=== PATIENT | female | born 1940 | race Caucasian/White ===

== ENCOUNTER 2019-10-20 17:30 | Emergency (ER) | payer MEDICARE, OTHER ==
[2019-10-20 17:46] LABS: INTERNATIONAL RATION (INR) 0.93; PARTIAL THROMBOPLASTIN TIME 25.3 SEC (23.5-35.8); PROTHROMBIN TIME 12.5 SEC (11.4-15.4)
[2019-10-20 17:53] LABS: ABSOLUTE BASOPHILS # (AUTO) 0.1 10^3/uL (0.0-0.2); ABSOLUTE EOSINOPHILS # (AUTO) 0.3 10^3/uL (0.0-0.6); ABSOLUTE LYMPHOCYTES (AUTO) 3.1 10^3/uL (0.5-4.7); ABSOLUTE MONOCYTES (AUTO) 0.6 10^3/uL (0.1-1.4); ABSOLUTE NEUT (AUTO) 4.2 10^3/uL (1.7-8.2); EOSINOPHILS % (AUTO) 3.3 % (0-6); HEMATOCRIT 33.9 % (36.0-47.0); HEMOGLOBIN 11.6 g/dL (12.0-15.5); LYMPHOCYTES % (AUTO) 37.7 % (13-45); MEAN CORPUSCULAR HEMOGLOBIN 31.4 pg (27.0-33.4); MEAN CORPUSCULAR HGB CONC 34.2 g/dL (32.0-36.0); MEAN CORPUSCULAR VOLUME 92 fl (80-97); MONOCYTES % (AUTO) 7.5 % (3-13); PLATELET COUNT 184 10^3/uL (150-450); RED BLOOD COUNT 3.69 10^6/uL (3.72-5.28); RED CELL DISTRIBUTION WIDTH 14.5 % (11.5-14.0); SEGMENTED NEUTROPHILS % (AUTO) 50.5 % (42-78); TOTAL CELLS COUNTED % (AUTO) 100 %; WHITE BLOOD COUNT 8.3 10^3/uL (4.0-10.5)
--- NOTE | 2019-10-20 17:57 | RADIOLOGY REPORT (SQ) ---
EXAM DESCRIPTION: CT HEAD WITHOUT COMPLETED DATE/TIME: 10/20/2019 5:43 pm REASON FOR STUDY: Stroke Alert COMPARISON: None. TECHNIQUE: Axial images acquired through the brain without intravenous contrast. Images reviewed wit h bone, brain and subdural windows. Images stored on PACS. All CT scanners at this facility use dose modulation, iterative reconstruction, and/or weight based d osing when appropriate to reduce radiation dose to as low as reasonably achievable (ALARA). [facility]: Dose Right [facility]: CareDose [facility]: Dose Right [facility]: Teradose 4D [facility]: [employer] RADIATION DOSE: CT Rad equipment meets quality standard of care and radiation dose reduction techniq ues were employed. CTDIvol: 53.2 mGy. DLP: 964 mGy-cm.. LIMITATIONS: None. FINDINGS: VENTRICLES: Normal size and contour. CEREBRUM: 8 x 3.5 x 4.5 cm hemorrhage in the left frontal lobe with 6 mm midline shift to the patient 's right side in the subfalcine location, left lateral ventricle remains mostly preserved. CEREBELLUM: No evidence for acute infarction. EXTRA-AXIAL SPACES: No fluid collections. ORBITS AND GLOBE: No intra- or extraconal masses. Normal contour of globe without masses. CALVARIUM: No fracture. PARANASAL SINUSES: No fluid or mucosal thickening. SOFT TISSUES: No mass or hematoma. OTHER: No other significant finding. IMPRESSION: 8 x 3.5 x 4.5 cm hemorrhage in the left frontal lobe with 6 mm midline shift to the mayte ent's right side in the subfalcine location, left lateral ventricle remains mostly preserved. EVIDENCE OF ACUTE STROKE: YES. LEFT MCA COMMENT: The findings were sent to the Radiology Results Communication Center at 17:50 on 9 to be communicated to a licensed caregiver. TECHNICAL DOCUMENTATION: JOB ID: [id number] [place]-72 Quality ID # [id number]: Final reports with documentation of one or more dose reduction techniques (e.g., Au tomated exposure control, adjustment of the mA and/or kV according to patient size, use of iterative reconstruction technique) 2010 [employer]- All Rights Reserved Reading location - IP/workstation name: [email or web address]
[2019-10-20 17:58] LABS: ALKALINE PHOSPHATASE 65 U/L (38-126); ANION GAP 9 (5-19); ASPARTATE AMINO TRANSFERASE 19 U/L (14-36); BILIRUBIN,DIRECT 0.1 mg/dL (0.0-0.4); BILIRUBIN,TOTAL 0.5 mg/dL (0.2-1.3); BLOOD UREA NITROGEN 23 mg/dL (7-20); CALCIUM 9.6 mg/dL (8.4-10.2); CARBON DIOXIDE 24 mmol/L (22-30); CHLORIDE 108 mmol/L (98-107); CREATINE KINASE 62 U/L (30-135); GLUCOSE 97 mg/dL (75-110); POTASSIUM 3.9 mmol/L (3.6-5.0); TOTAL PROTEIN 6.6 g/dL (6.3-8.2)
--- NOTE | 2019-10-20 17:58 | RADIOLOGY REPORT (SQ) ---
EXAM DESCRIPTION: CHEST SINGLE VIEW COMPLETED DATE/TIME: 10/20/2019 5:45 pm REASON FOR STUDY: Stroke Alert COMPARISON: None. EXAM PARAMETERS: NUMBER OF VIEWS: One view. TECHNIQUE: Single frontal radiographic view of the chest acquired. RADIATION DOSE: NA LIMITATIONS: None. FINDINGS: LUNGS AND PLEURA: No opacities, masses or pneumothorax. No pleural effusion. MEDIASTINUM AND HILAR STRUCTURES: No masses. Contour normal. HEART AND VASCULAR STRUCTURES: Heart normal in size. Normal vasculature. BONES: No acute findings. HARDWARE: None in the chest. OTHER: No other significant finding. IMPRESSION: NO ACUTE RADIOGRAPHIC FINDING IN THE CHEST. TECHNICAL DOCUMENTATION: JOB ID: [id number] [place]-72 2010 [employer]- All Rights Reserved Reading location - IP/workstation name: [email or web address]
--- NOTE | 2019-10-20 17:59 | ER Document Report ---
ED General - General Chief Complaint: S/S of Possible Stroke Stated Complaint: POSSIBLE STROKE Time Seen by Provider: 10/20/19 17:53 Mode of Arrival: Medic Information source: Relative, Emergency Med Personnel - [facility] Notes: 79-year-old white female with history of "dementia" on amantadine and a baby aspirin for many many years says but she has never had any known hyperte nsion or prior strokes who was in her usual state of health which is very functional she still cooks gets up around the house enjoys time with her but around 1640 almost an hour prior to EMS arrival here suddenly patient is unable to move right upper or lower extremities she was following commands moving her left arm so they called EMS immediately. EMS said she still was following commands and that she would squeeze with her left hand was moving her feet some her blood pressure was less than 140 systolic heart rate within normal limits her glucose was within normal limits she had a gaze deviation. To the left she appeared to be in no pain no vomiting or seizure-like activity per EMS - Related Data Allergies/Adverse Reactions: No Known Allergies Allergy (Unverified 10/20/19 17:43) Past Medical History - Social History Smoking Status: Never Smoker Frequency of alcohol use: None Drug Abuse: None Lives with: Spouse/Significant other Family History: Reviewed & Not Pertinent Patient has suicidal ideation: No Patient has homicidal ideation: No - Past Medical History Cardiac Medical History: Reports: None Review of Systems - Review of Systems -: No ROS unobtainable due to patient's medical condition - All history is from who is always with her and has she has been in Constitutional: denies: Chills, Diaphoresis, Fever, Weakness, Weight gain, Weight loss EENT: denies: Double vision, Nose discharge, Difficulty swallowing, Dental problem, Vertigo Cardiovascular: denies: Chest pain, Orthopnea, Dyspnea, Syncope, Paroxysmal Noc turnal Dysp Respiratory: denies: Cough, Hemoptysis, Short of breath Gastrointestinal: denies: Abdominal pain, Vomiting, Blood streaked bowels, Poor appetite, Poor fluid intake Genitourinary: denies: Flank pain, Incontinence Musculoskeletal: No symptoms reported Skin: No symptoms reported Hematologic/Lymphatic: No symptoms reported Neurological/Psychological: denies: Depression, Hallucinations, Seizure Physical Exam - Vital signs Vitals: Temp 97.2 F 10/20/19 17:31 - Notes Notes: General: Older lady who has some signs of frailty but no open wounds she has good muscle bulk consistent with history of continuing to ambulate and cook and do things around the house and with her . Neurologic eyes open spontaneously but deviated to left she does blink to threat from the right not the left pupils are equal and reactive there is facial hemiparesis on the left, she is able to follow commands with the left upper extremity and squeeze hand, cannot resist gravity to more proximal muscle, ca nnot move right arm at all cannot move lower proximal muscles against gravity but can wiggle left toes. No language or attempt to speak on command. CV all extremities is warm well perfused no peripheral edema or color changes. Quiet precordium heart rate in the 70s no murmurs rubs gallops clicks grossly no obvious JVD or carotid bruits. Respiratory spontaneous right slightly under 20 no focal findings on auscultation of the lungs no increased work of breathing Abdomen benign exam no bruising or other masses or tenderness Skin: Intact within normal limits Course - Re-evaluation Re-evalutation: 10/20/19 20:09 Patient stopped following commands is still spontaneously moving with the left hand grasping not necessarily to command, she is sleeping but eyes open with light physical stimuli and verbal stimuli , no change in bilateral eye deviations to the left pupil still equal and reactive to light. Does intimately have some diffuse myoclonic jerks. But no evidence of subclinical or other seizure activity. Patient blood pressure initially 120 systolic she continued to be from 1 20-1 40 without any intervention. Family understanding of the gravity of patient's condition and that her brain may have irreversible damage and she may never be able to interact again. They understand that there may not be any neurosurgical or other interventional possibility. There he had discussed before that she would also not want to be "on a machine for a long time but they had both asked each other to be there ~end for one another if anything could be done. Therefore if entered the patient would be necessary until they could have assessment by the neurosurgeon and [facility] then they will think she would be okay with that. Labs are within normal limits she She was only on a baby aspirin and donepezil no other blood thinners CT of the head on immediate arrival showed a large left frontal intraparenchymal hemorrhage with subfalcine on movement with midline shift of few centimeters and some cerebral edema - Vital Signs Vital signs: Temp Pulse Resp BP Pulse Ox 97.2 F 62 13 146/60 H 98 10/20/19 17:31 10/20/19 17:32 10/20/19 19:41 10/20/19 19:41 10/20/19 19:41 - Laboratory Result Diagrams: 10/20/19 17:33 10/20/19 17:33 Laboratory results interpreted by me: 10/20/19 10/20/19 17:33 17:33 RBC 3.69 L Hgb 11.6 L Hct 33.9 L RDW 14.5 H Chloride 108 H BUN 23 H - EKG Interpretation by Me Additional EKG results interpreted by me: 10/20/19 17:58 EKG at 1748 shows sinus regular rate [address] elevations depressions all intervals within normal limits voltage within normal limits axis within normal limits. Critical Care Note - Critical Care Note Total time excluding time spent on procedures (mins): 60 Discharge - Discharge Clinical Impression: Spontaneous intraparenchymal intracranial hemorrhage, acute Condition: Poor Disposition: [facility] Admitting Provider: [facility] Admitted: ICU
[2019-10-20 18:10] LABS: CREATINE KINASE MB 1.42 ng/mL (<4.55)
[2019-10-20 18:12] LABS: TROPONIN I < 0.012 ng/mL
[2019-10-20] MEDS ORDERED: NICARDIPINE HCL RTU, ISO-OS 20 MG/200 ML RTUINJ IV PRN (18:47)
[2019-10-20 19:44] VITALS: BP 146/60
--- NOTE | 2019-10-21 17:03 | EKG REPORT ---
SEVERITY:- BORDERLINE ECG - SINUS RHYTHM : Confirmed by: Juanjo Flores MD 21-Oct-2019 17:02:54
== END 2019-10-20 20:05 | disposition short-term general hospital (02) ==
LOC: ER 17:30
DX: I61.8 Other nontraumatic intracerebral hemorrhage (principal); G81.91 Hemiplegia, unspecified affecting right dominant side; F03.90 Unspecified dementia, unspecified severity, without behavioral disturbance, psychotic disturbance, mood disturbance, and anxiety; Z79.82 Long term (current) use of aspirin
CPT/HCPCS: 36415; 51702; 70450; 71045; 80053; 82550; 82553; 82962; 84484; 85025; 85610; 85730; 93005; 93010; 99291